=== PATIENT | female | born 1965 ===

== ENCOUNTER 2022-03-27 06:00 | Outpatient (RCR) | payer OTHER, SELFPAY | END 2022-03-29 23:59 | disposition home or self-care (01) | LOC: GPT 06:00 | PROVIDERS: Visit Provider Surgery | DX: M54.12 Radiculopathy, cervical region (principal); M54.2 Cervicalgia; M50.30 Other cervical disc degeneration, unspecified cervical region; M25.511 Pain in right shoulder | CPT/HCPCS: 97110; 97161; 97535 ==

== ENCOUNTER 2022-03-30 06:00 | Outpatient (RCR) | payer OTHER, SELFPAY | END 2022-04-29 23:59 | disposition home or self-care (01) | LOC: GPT 06:00 | PROVIDERS: Visit Provider Surgery | DX: M54.12 Radiculopathy, cervical region (principal); M54.2 Cervicalgia; M50.30 Other cervical disc degeneration, unspecified cervical region; M25.511 Pain in right shoulder | CPT/HCPCS: 97110; 97112; 97140; 97530; G0283 ==